=== PATIENT | female | born 1995 | race Hispanic/Latino ===

== ENCOUNTER 2016-11-18 22:39 | Emergency (ER) | payer OTHER ==
[~2016-11-18] VITALS: Ht 160 cm; Wt 76.2 kg
[~2016-11-18 22:39] MED LIST: AUGMENTIN 875 M1 TAB PO; FIORICET 50-301 EACH PO; IBUPROFEN800 M1 PO; TRAMADOL50 MG PO; ULTRAM(MONOGRAP50 MG PO; VICODIN5-300 PO; ZOFRAN4 M2 PO
[2016-11-18 23:43] LABS: ABSOLUTE BASOPHIL COUNT 0 /CUMM (0.0-0.2); ABSOLUTE EOSINOPHIL COUNT 0.1 /CUMM (0.0-0.7); ABSOLUTE GRANULOCYTE CT 5.7 /CUMM (1.4-6.5); ABSOLUTE LYMPH COUNT 1.8 /CUMM (1.2-3.4); ABSOLUTE MONOCYTE COUNT 0.7 /CUMM (0.10-0.60); BASOPHIL % 0.3 % (0.0-2.0); EOSINOPHIL % 0.8 % (0-5); GRANULOCYTE % 68.8 % (42.2-75.2); HEMATOCRIT 43.2 % (37-47); MEAN CORPUSCULAR HGB 30.6 PG (27.0-31.0); MEAN CORPUSCULAR HGB CONC 33.5 G/DL (33.0-37.0); MEAN CORPUSCULAR VOLUME 91.3 FL (81.0-99.0); MEAN PLATELET VOLUME 8.4 FL (7.4-10.4); PLATELET COUNT 247 /CUMM (130-400); RBC DISTRIBUTION WIDTH 12.7 % (11.5-14.5); RED BLOOD CELL CT 4.73 /CUMM (4.20-5.40); WHITE BLOOD CELL COUNT 8.3 /CUMM (4.8-10.8)
--- NOTE | 2016-11-19 00:19 | ED GI/GU/ABDOMINAL COMPLAINT ---
History of Present Illness General Chief Complaint: Abdominal Pain/Flank Pain Stated Complaint: ABD. PAIN WITH VOMITING X 4DAYS Source: patient Exam Limitations: no limitations Vital Signs & Intake/Output Vital Signs & Intake/Output ED Intake and Output 11/20 0000 11/19 1200 Intake Total 1000 Output Total Balance 1000 Intake, IV 1000 Allergies Coded Allergies: nickel (RASH 06/04/16) Reconcile Medications Butalb/Acetaminophen/Caffeine (Fioricet 50-300-40 MG Capsule) 1 EACH CAPSULE 1 TAB PO Q6HR PRN PAIN Ibuprofen 800 MG TABLET 1 TAB PO TID PRN HEADACHE Ondansetron (Zofran Odt) 4 MG TAB.RAPDIS 1 TAB SL TID PRN nausea Ondansetron HCl (Zofran) 4 MG TABLET 1 TAB PO Q6-8P PRN NAUSEA Triage Note: PT TO TRIAGE WITH C/O SHARP INTERMITTENT ABD PAIN 08/20 SINCE SATURDAY, NAUSEA AND VOMITING SINCE YESTERDAY, DIARRHEA TODAY. PT DENIES FEVER. NO OTHER COMPLAINTS. AFEBRILE IN TRIAGE, VSS. Triage Nurses Notes Reviewed? yes ? Y Is pt currently ? No HPI: 21-year-old female here with complaints of generalized abdominal pain and multiple episodes of nausea and vomiting over the last 2 days. Her vomiting has improved today, one time today however still has generalized central abdominal pain which is aching, ways of nausea, feeling weak increased thirst feeling dehydrated and having a poor appetite. She has positive sick contacts with people at work and her sister having a gastrointestinal virus and noro virus has been prevalent in the community . her last menstrual period was approximately 5 weeks ago. She has no urinary symptoms. No fever. No treatment thus far. (AC AQUINO) Past History Travel History Traveled to [place] past 21 day No Medical History Any Pertinent Medical History? see below for history Neurological: NONE EENT: NONE Cardiovascular: NONE Respiratory: NONE Gastrointestinal: NONE Hepatic: NONE Renal: NONE Musculoskeletal: NONE Psychiatric: NONE Endocrine: NONE Blood Disorders: NONE Cancer(s): NONE POLICY SERVICES REPRESENTATIVE/Reproductive: NONE History of MRSA: No History of VRE: No History of CDIFF: No Tetanus Vaccine: 08/27/12 Surgical History Surgical History: TONSELECTOMY Psychosocial History Who do you live with Mother What is your primary language Sami Tobacco Use: Never used Family History Hx Contributory? No (AC AQUINO) Review of Systems Review of Systems Constitutional: Reports: see HPI. EENTM: Reports: no symptoms. Respiratory: Reports: no symptoms. Cardiovascular: Reports: no symptoms. GI: Reports: see HPI. Genitourinary: Reports: no symptoms. Musculoskeletal: Reports: no symptoms. Skin: Reports: no symptoms. Neurological/Psychological: Reports: no symptoms. Hematologic/Endocrine: Reports: no symptoms. Immunologic/Allergic: Reports: no symptoms. All Other Systems: Reviewed and Negative (AC AQUINO) Physical Exam Physical Exam Gastrointestinal: normal bowel sounds, soft, mild generalized abdominal tenderness. No focal McBurney's point tenderness, negative Bruno sign Comments: Well-developed well-nourished no apparent distress. HEENT: Atraumatic, extraocular motion intact Neck: Supple, no lymphadenopathy Back: Nontender Respiratory: No respiratory distress clear to auscultation bilateral. Heart: Regular rate and rhythms no murmur Extremities: No edema, full range of motion Neuro: Alert and oriented x3 Psych: Mood affect normal, normal memory normal judgment. Skin: Warm and dry, no rash on exposed skin Core Measures ACS in differential dx? No Severe Sepsis Present: No Septic Shock Present: No (AC AQUINO) Progress Differential Diagnosis: appendicitis, biliary colic, bowel obstruction, colon cancer, cholecystitis, diverticulitis, ectopic , endometritis, esophageal varices, gastritis, hepatitis, hernia, hemorrhoids, ischemic bowel, inflamm bowel dis, intrauterine , kidney stone, Maryse-Grant tear, ovarian cyst, ovarian torsion, pancreatitis, PID/cervicitis, peptic ulcer, PUD/ GERD, perforated viscous, SBO, threatened AB, UTI/pyelo Plan of Care: Orders Procedure Date/time Status URINALYSIS 11/18 2258 Complete LIPASE 11/18 2258 Complete HUMAN BETA HCG SCREEN 11/18 2258 Complete COMPREHENSIVE METABOLIC PANEL 11/18 2258 Complete CBC WITHOUT DIFFERENTIAL 11/18 2258 Complete AMYLASE 11/18 2258 Complete Laboratory Tests 11/18/16 2346: Urine Color YEL, Urine Clarity CLEAR, Urine pH 6.0, Ur Specific [place] 1.015, Urine Protein NEG, Urine Ketones NEG, Urine Nitrite NEG, Urine Bilirubin NEG, Urine Urobilinogen 1.0, Ur Leukocyte Esterase NEG, Ur Microscopic EXAM NOT REQUIRED, Urine Hemoglobin NEG, Urine Glucose NEG 11/18/16 2335: Anion Gap 15, Estimated GFR > 60, BUN/Creatinine Ratio 15.0, Glucose 86, Calcium 9.6, Total Bilirubin 0.8, AST 20, ALT 29, Alkaline Phosphatase 53, Total Protein 7.4, Albumin 4.5, Globulin 2.9, Albumin/Globulin Ratio 1.6, Amylase 36, Lipase 97, Total Beta HCG POSITIVE, CBC w Diff NO MAN DIFF REQ, RBC 4.73, MCV 91.3, MCH 30.6, RDW 12.7, MPV 8.4, Gran % 68.8, Lymphocytes % 22.2, Monocytes % 7.9, Eosinophils % 0.8, Basophils % 0.3, Absolute Granulocytes 5.7, Absolute Lymphocytes 1.8, Absolute Monocytes 0.7 H, Absolute Eosinophils 0.1, Absolute Basophils 0, PUBS MCHC 33.5 Initial ED EKG: none Comments: Treated with IV fluids, IV Zofran 4 mg. Patient reevaluated and is feeling better. Symptoms consistent with gastrointestinal virus that has been prevalent in the community. Recommend Zofran as outpatient, bland diet, encourage fluids and following up with worsening abdominal pain nausea vomiting or fever or unable to stay hydrated Patient noted to be , this was discussed with her, she is 5 weeks by date, she has no pelvic pain or cramping or vaginal bleeding. She should follow -up with her CAR CARDER doctor in the next few weeks. (AC AQUINO) Departure Departure Disposition: HOME OR SELF CARE Condition: Stable Clinical Impression Primary Impression: Gastroenteritis Secondary Impressions: Qualifiers: Weeks of gestation: less than 8 weeks Qualified Code: Z3A.01 - Less than 8 weeks gestation of Referrals: MORGAN HARVEY MD (PCP/Family) Additional Instructions: Zofran as needed for nausea. bland diet, increase fluids Return to the ER with worsening abdominal pain nausea vomiting, fever or unable to stay hydrated call your tile setter apprentice doctor tomorrow for follow up of a positive test that was done in the ER. Departure Forms: Customer Survey General Discharge Information Prescriptions: Current Visit Scripts Ondansetron (Zofran Odt) 1 TAB SL TID PRN nausea #15 TAB (AC AQUINO) PA/SYSTEMS PROGRAM MANAGER Co-Sign Statement Statement: ED Attending supervision documentation- [] I saw and evaluated the patient. I have also reviewed all the pertinent lab results and diagnostic results. I agree with the findings and the plan of care as documented in the PA's/SYSTEMS PROGRAM MANAGER's documentation. [x] I have reviewed the ED Record and agree with the PA's/SYSTEMS PROGRAM MANAGER's documentation. [] Additions or exceptions (if any) to the PAs/SYSTEMS PROGRAM MANAGER's note and plan are summarized below: [] (HALEY BINGHAM,FRANKY Adams)
[2016-11-19] MEDS ORDERED: ZOFRAN ODT4 M1 SL (00:27)
[2016-11-19 00:32] VITALS: BP 146/90
== END 2016-11-19 00:37 ==
LOC: ERH 22:39
PROVIDERS: Pediatrics
DX: O99.611 Diseases of the digestive system complicating pregnancy, first trimester (principal)
CPT/HCPCS: 81003; 96374; J2405

== ENCOUNTER 2017-02-07 18:37 | Emergency (ER) | payer OTHER ==
[~2017-02-07] VITALS: Ht 160 cm; Wt 76.7 kg
[~2017-02-07 18:37] MED LIST changes: +ZOFRAN ODT4 M1 SL
[2017-02-07 19:41] VITALS: BP 114/71
[2017-02-07] MEDS ORDERED: AMOXICILLIN875 M1 PO (21:28)
[2017-02-07] MEDS ORDERED: MECLIZINE HCL25 MG PO (21:28)
--- NOTE | 2017-02-07 21:28 | ED AMS/SEIZURE/WEAK/DIZZY ---
History of Present Illness General Chief Complaint: Abdominal Pain/Flank Pain Stated Complaint: 4 MONTHS , LOW ABD PAIN, DIZZINESS Source: patient, old records Exam Limitations: no limitations Vital Signs & Intake/Output Vital Signs & Intake/Output Vital Signs Date Time Temp Pulse Resp B/P Pulse O2 O2 Flow FiO2 Ox Delivery Rate 02/07 1941 99.1 98 18 114/71 99 Room Air Allergies Coded Allergies: nickel (RASH 06/04/16) Reconcile Medications Butalb/Acetaminophen/Caffeine (Fioricet 50-300-40 MG Capsule) 1 EACH CAPSULE 1 TAB PO Q6HR PRN PAIN Ibuprofen 800 MG TABLET 1 TAB PO TID PRN HEADACHE Ondansetron (Zofran Odt) 4 MG TAB.RAPDIS 1 TAB SL TID PRN nausea Ondansetron HCl (Zofran) 4 MG TABLET 1 TAB PO Q6-8P PRN NAUSEA Triage Note: PT IS 16 WEEKS , . OB DR CORBIN. STATES HAS HAD CRAMPING PAIN IN RLQ AND DIZZINESS "FOR OVER A MONTH" R/T BLOOD CLOT IN THE [place]" BUT NOW IT'S WORSE. HAS HAD +NAUSEA THROUGHOUT . STATES NORMAL VAGINAL DISCHARGE. CBC IS AWARE PT IS IN ED Triage Nurses Notes Reviewed? yes Onset: 2 days Duration: day(s):, continues in ED, waxing and waning Timing: recent history Injury Environment: home Severity: mild Modifying Factors: Worsens With: movement. Associated Symptoms: cough LMP (ages 10-50): 16 weeks AOG : Yes Patient currently breastfeeds: No HPI: 2 days prior to admission patient complains of nasal congestion ringing in ears episodes of dizziness nausea worse with head movement associated with ringing in ears. She also complains of increased left lower quadrant pain. She denies fever chills chest pain cough shortness of breath headache dysuria rash bleeding vaginal discharge. Past History Travel History Traveled to [place] past 21 day No Medical History Any Pertinent Medical History? see below for history Neurological: NONE EENT: NONE Cardiovascular: NONE Respiratory: NONE Gastrointestinal: NONE Hepatic: NONE Renal: NONE Musculoskeletal: NONE Psychiatric: NONE Endocrine: NONE Blood Disorders: NONE Cancer(s): NONE OIL AND GAS SPECIALIST/Reproductive: NONE History of MRSA: No History of VRE: No History of CDIFF: No Tetanus Vaccine: 08/27/12 Surgical History Surgical History: TONSELECTOMY Psychosocial History Who do you live with Mother What is your primary language Turkmen Tobacco Use: Never used ETOH Use: denies use Illicit Drug Use: denies illicit drug use Family History Hx Contributory? No Review of Systems Review of Systems Constitutional: Reports: see HPI, malaise. EENTM: Reports: see HPI, hearing changes, nasal congestion. Respiratory: Reports: see HPI, cough. Cardiovascular: Reports: no symptoms. GI: Reports: no symptoms. Genitourinary: Reports: see HPI, pain. Musculoskeletal: Reports: no symptoms. Skin: Reports: no symptoms. Neurological/Psychological: Reports: no symptoms. Hematologic/Endocrine: Reports: no symptoms. Immunologic/Allergic: Reports: no symptoms. All Other Systems: Reviewed and Negative Physical Exam Physical Exam General Appearance: well developed/nourished, alert, awake, anxious, mild distress Head: atraumatic, normal appearance Eyes: Bilateral: normal appearance, PERRL, EOMI. Ears, Nose, Throat: normal pharynx, normal ENT inspection, moist mucus membranes Neck: normal inspection, supple, full range of motion, no midline tenderness Respiratory: normal breath sounds, chest non-tender, no respiratory distress, quiet respiration, lungs clear Cardiovascular: regular rate/rhythm, normal peripheral pulses, norml femoral pulses equa Peripheral Pulses: 4+ carotid (R), 4+ carotid (L) Gastrointestinal: normal bowel sounds, soft, non-tender, no organomegaly Back: normal inspection, normal range of motion, no vertebral tenderness Extremities: normal range of motion, no ligament instability Neurologic/Psych: no motor/sensory deficits, awake, alert, oriented x 3, normal gait, normal mood/affect, airplane inspector II-XII nml as tested Reflexes: 2+: bicep (R), bicep (L). Skin: intact, normal color, warm/dry Lymphatic: no anterior cervical sophia Core Measures ACS in differential dx? No CVA/TIA Diagnosis: No Severe Sepsis Present: No Septic Shock Present: No Progress Differential Diagnosis: benign positional vertigo, dehydration, electrolyte imbalance Plan of Care: Orders Procedure Date/time Status URINALYSIS 02/08 1948 Complete Laboratory Tests 02/07/17 2009: Urine Color YEL, Urine Clarity CLEAR, Urine pH 6.5, Ur Specific [place] 1.010, Urine Protein NEG, Urine Ketones NEG, Urine Nitrite NEG, Urine Bilirubin NEG, Urine Urobilinogen 0.2, Ur Leukocyte Esterase NEG, Ur Microscopic EXAM NOT REQUIRED, Urine Hemoglobin NEG, Urine Glucose NEG 02/07/17 1948: Sodium Cancelled, Potassium Cancelled, Chloride Cancelled, Carbon Dioxide Cancelled, Anion Gap Cancelled, BUN Cancelled, Creatinine Cancelled, BUN/ Creatinine Ratio Cancelled, Glucose Cancelled, Calcium Cancelled, Total Bilirubin Cancelled, AST Cancelled, ALT Cancelled, Alkaline Phosphatase Cancelled, Total Protein Cancelled, Albumin Cancelled, Globulin Cancelled, Albumin/Globulin Ratio Cancelled, CBC w Diff Cancelled, WBC Cancelled, RBC Cancelled, Hgb Cancelled, Hct Cancelled, MCV Cancelled, MCH Cancelled, RDW Cancelled, Plt Count Cancelled, MPV Cancelled, PUBS MCHC Cancelled Initial ED EKG: none Departure Departure Time of Disposition: 2125 Disposition: HOME OR SELF CARE Condition: Stable Clinical Impression Primary Impression: Sinusitis, acute Qualifiers: Sinusitis location: unspecified location Recurrence: not specified as recurrent Qualified Code: J01.90 - Acute sinusitis, unspecified Secondary Impressions: Labyrinthitis Qualifiers: Laterality: unspecified laterality Qualified Code: H83.09 - Labyrinthitis, unspecified ear Qualifiers: Weeks of gestation: 16 weeks Qualified Code: Z3A.16 - 16 weeks gestation of Referrals: WES BINGHAM,MORGAN (PCP/Family) DEANDRE CORBIN MD Departure Forms: Customer Survey General Discharge Information Prescriptions: Current Visit Scripts Amoxicillin 1 TAB PO BID #20 TAB Meclizine HCl 1 TAB PO TIDPRN #30 TAB
== END 2017-02-07 21:35 ==
LOC: ERH 18:37
DX: O99.512 Diseases of the respiratory system complicating pregnancy, second trimester (principal); J01.90 Acute sinusitis, unspecified; H83.09 Labyrinthitis, unspecified ear; Z3A.16 16 weeks gestation of pregnancy
CPT/HCPCS: 81003